=== PATIENT | male | born 1950 | race Caucasian/White ===

== ENCOUNTER 2022-02-07 07:31 | Day surgery (SDC) | payer MEDICARE, OTHER ==
--- NOTE | 2022-02-01 09:51 | NUR ---
01-31-22 CALLED PATIENT TO REMIND OF PRE-ADMIT APPOINTMENT, NO ANSWER LEFT MESSAGE. 02-01-22 PT SIS NOT SHOW UP FOR PRE-ADMIT APPOINTMENT AT 09:00 TODAY. CALLED AGAIN AND LEFT MESSAGE. CLED BACK AND RESCHEDULE FOR PRE-ADMIT ON 02-02-22 AT 14:00.
[~2022-02-07] VITALS: Ht 182.9 cm; Wt 75.0 kg
[~2022-02-07 07:31] MED LIST: AMLODIPINE BESY10 MG PO; CRESTOR10 MG PO; IBUPROFEN400 MG PO; TRIAMTERENE-HC1 EAC1 PO; VIAGRA100 MG PO
--- NOTE | 2022-02-07 10:02 | NUR ---
02/07/22 1002 Sheets,Lauryn 0963 PT ARRIVED TO PACU ON 6L VIA MASK, PT ASLEEP AND RESP EVEN AND UNLABORED. VSS.
--- NOTE | 2022-02-07 16:27 | OR ---
[facility] [address], [place] [address] Signed DATE OF OPERATION: 02/07/2022 SURGEON: Stacy Ramirez MD PREOPERATIVE DIAGNOSIS: History of hyperplastic polyp in 2006, negative colonoscopy in 2013; surveillance. POSTOPERATIVE DIAGNOSIS: Polyps x3 (right transverse, left colon at 60 cm and sigmoid). PROCEDURE: Total colonoscopy to cecum with cold snare polypectomy x2. Cold morcellation polypectomy x1. ANESTHESIA: Intravenous sedation of propofol; Lazarus Pal CRNA. INDICATIONS: This 71-year-old white man is a patient of Dr. Gray at [facility]. He underwent colonoscopy by ri in 2006 showing a hyperplastic polyp of the left colon and repeat colonoscopy in 2012, which was negative. He is symptom free currently. He is here for surveillance colonoscopy. He has no family history of colon cancer. The patient does drink four alcoholic beverages on a daily basis and on that basis propofol infusional sedation is preferred. He understands the risks of colonoscopy including but not limited to bleeding, infection, perforation, and so on. FINDINGS: The prep was adequate. Complete colonoscopy was undertaken to the cecum. He had three polyps all excised completely. PROCEDURE IN DETAIL: The patient was brought to the surgical endoscopy suite, placed in lateral decubitus position. He was given intravenous sedation with propofol infusional technique with full cardiopulmonary monitoring. Digital rectal examination was normal. He did have erythematous changes of the soft tissue of the buttocks, but no sign of actual decubitus or actual cellulitis or infection. An Olympus video colonoscope was passed in the rectum and manipulated throughout the colon noting a small sessile polyp of the right transverse colon initially. This was excised with cold snare technique. The scope was then advanced to the cecum. The ileocecal valve and appendiceal orifice were normal. Scope was withdrawn from that point and examination throughout showed no sign of Electronically Signed By: STACY RAMIREZ MD 02/07/22 1627 PATIENT NAME: SHAYLA HURLEY OPERATIVE REPORT DATE OF : 54 REPORT #: [id number] PHYSICIAN: STACY RAMIREZ MD PCP: ROB GRAY MD REPORT IS CONFIDENTIAL AND NOT TO BE RELEASED WITHOUT AUTHORIZATION [facility] [address], [place] [address] Signed abnormality until the left colon at about 60 cm where another sessile polyp was noted. This too was excised with cold snare polypectomy technique and passed for pathology. Further withdrawal showed a smaller polyp in the rectosigmoid. This was excised with cold morcellation technique. Further withdrawal to the rectum allowed for retroflexed view, which was normal. He did have some internal hemorrhoids. The scope was removed. The patient was taken to recovery room in good condition. CONCLUDING DIAGNOSIS: Polyps x3. PLAN: Recommend repeat colonoscopy in 5 years, sooner if clinically indicated. He will return to the ongoing care of [facility] as Dr. Gray has recently retired. MD KELECHI Siddiqui/ROBERT /[id number] cc: [facility] Copies: ~ Electronically Signed By: STACY RAMIREZ MD 02/07/22 1627 PATIENT NAME: SHAYLA HURLEY [place] OPERATIVE REPORT DATE OF : 54 REPORT #: [id number] PHYSICIAN: STACY RAMIREZ MD PCP: ROB GRAY MD REPORT IS CONFIDENTIAL AND NOT TO BE RELEASED WITHOUT AUTHORIZATION
--- NOTE | 2022-02-09 12:32 | PATH ---
[facility] [address] [place] [address] Signed SPECIMEN(S): A TRANSVERSE ASCENDING/RIGHT POLYP SPECIMEN(S): B POLYP AT 60 CM SPECIMEN(S): C SIGMOID POLYP SPECIMEN SOURCE: A. TRANSVERSE ASCENDING/RIGHT POLYP B. POLYP AT 60 CM C. SIGMOID POLYP CLINICAL HISTORY: Surveillance FINAL PATHOLOGIC DIAGNOSIS: A. Transverse ascending / right polyp: - Tubular adenoma (one fragment). B. Polyp at 60 cm: - Tubular adenoma (two fragments). C. Sigmoid polyp: - Hyperplastic polyp (two fragments). JVR:[facility]:C2NR MICROSCOPIC EXAMINATION: Histologic sections of all submitted blocks are examined by light microscopy. These findings, together with the gross examination, support the pathologic diagnosis. GROSS DESCRIPTION: A. The specimen, labeled and designated "Nelsonlke, transverse ascending/right polyp," is received in formalin and consists of one rodarte soft tissue fragment, 0.4 cm. Entirely submitted in (A1). B. The specimen, labeled and designated "Nelsonlke, polyp at 60 cm," is received in formalin and consists of two rodarte soft tissue fragments, ranging from 0.2 to 0.3 cm. Entirely submitted in (B1). C. The specimen, labeled and designated "Johlke, sigmoid polyp," is received in formalin and consists of three rodarte soft tissue fragments, ranging from 0.2 to 0.4 cm. Entirely submitted in (D1). HH (under the direct supervision of a pathologist) The Gross Description was prepared using a voice recognition system. The report was reviewed for accuracy; however, sound-alike word errors, addition and/or deletions may occur. If there is any question about this report, please contact Client Services. PATIENT NAME: SHAYLA HURLEY PATHOLOGY DATE OF : 54 REPORT #: [id number] PHYSICIAN: ASHLEE PATHOLOGY PCP: ROB GRAY MD REPORT IS CONFIDENTIAL AND NOT TO BE RELEASED WITHOUT AUTHORIZATION [facility] [address] [facility] [place] [address] Signed PERFORMING LABORATORY: The technical component was performed by [facility], [address] [place] [address] (CLIA# [id number]). Professional interpretation was performed by [facility] - [address] [address] (CLIA#: [id number]). Diagnostician: Bebo Hsu MD Pathologist Electronically Signed 02/09/2022 Copies: ~ PATIENT NAME: SHAYLA HURLEY PATHOLOGY DATE OF : 54 REPORT #: [id number] PHYSICIAN: ASHLEE CAMARILLO PCP: ROB GRAY MD REPORT IS CONFIDENTIAL AND NOT TO BE RELEASED WITHOUT AUTHORIZATION
== END 2022-02-07 10:45 | disposition home or self-care (01) ==
LOC: DS 07:31 → OPS 07:31 → DS 10:45 → OPS 10:45
PROVIDERS: ATTEND Surgery
PROC: 0DBL8ZZ Excision of Transverse Colon, Via Natural or Artificial Opening Endoscopic (ICD-10-PCS; 2022-02-07)
PROC: 0DBN8ZZ Excision of Sigmoid Colon, Via Natural or Artificial Opening Endoscopic (ICD-10-PCS; 2022-02-07)
PROC: 0DBM8ZZ Excision of Descending Colon, Via Natural or Artificial Opening Endoscopic (ICD-10-PCS; principal; 2022-02-07 08:30)
DX: Z12.11 Encounter for screening for malignant neoplasm of colon (principal); Z86.010 Personal history of colon polyps; F10.20 Alcohol dependence, uncomplicated; I10 Essential (primary) hypertension; H54.40 Blindness, one eye, unspecified eye; D12.3 Benign neoplasm of transverse colon; K63.5 Polyp of colon
CPT/HCPCS: J2001; J2704; J7121

== ENCOUNTER 2023-05-31 05:55 | Day surgery (SDC) | payer MEDICARE, OTHER ==
[2023-05-23 09:40] VITALS: BP 139/75
[~2023-05-31] VITALS: Ht 182.9 cm; Wt 74.5 kg
[~2023-05-31 05:55] MED LIST changes: +CRESTOR40 MG PO; +LACTATED RINGER'S 1,000 ML IV SCH; +LEVOTHYROXINE112 MC1 PO; +LOSARTAN-HCTZ1 EAC2 PO
[2023-05-31 06:10] VITALS: BP 164/75
[2023-05-31] MEDS ORDERED: ondansetron HCL 4 MG/2 ML VIAL ONE (06:58)
[2023-05-31] MEDS ORDERED: DEXAMETHASONE SOD PHOS 4 MG/ML VIAL ONE ×2 (06:58→07:04)
[2023-05-31] MEDS ORDERED: LIDOCAINE HCL 1% 30 ML SDV ONE (06:58)
[2023-05-31] MEDS ORDERED: dexmedeTOMIDine HCl 200 MCG/2 ML VIAL ONE (06:58)
[2023-05-31] MEDS ORDERED: propofoL 200 MG/20 ML VIAL ONE ×2 (06:58→07:05)
[2023-05-31] MEDS ORDERED: KETAMINE in NS 50 MG/5 ML SYR ONE (06:58)
[2023-05-31] MEDS ORDERED: KETOROLAC TROMETHAMINE 30 MG/ML VIAL ONE (06:58)
[2023-05-31] MEDS ORDERED: LIDOCAINE HCL 1% 5 ML SDV INJ ONE (07:00)
[2023-05-31] MEDS ORDERED: HEParin SOD (PORCINE) 5,000 UNIT/0.5 ML SYR SUB-Q SCH (07:00)
[2023-05-31] MEDS ORDERED: IBLOOD GLUCOSE TEST STRIP 1 EA TEST VI PRN ×2 (07:00→08:45)
[2023-05-31] MEDS ORDERED: CEFAZOLIN SODIUM 2 GM/20 ML SYR IV SCH (07:00)
[2023-05-31] MEDS ORDERED: SODIUM CHLORIDE 0.9% 20 ML IV ONE (07:04)
[2023-05-31] MEDS ORDERED: Ropivacaine HCl 0.5% 30 ML VIAL ONE (07:04)
--- NOTE | 2023-05-31 07:30 | NUR ---
UNABLE TO VISIT DURING SPIRITUAL CARE ROUNDS. PT JUST LEAVING FOR PROCEDURE. PROVIDED PRAYER WITHOUT INTERRUPTING.
[2023-05-31] MEDS ORDERED: ACETAMINOPHEN 1,000 MG/100 ML VIAL ONE (07:42)
[2023-05-31] MEDS ORDERED: LACTATED RINGER'S 1,000 ML IV ONE (08:20)
[2023-05-31] MEDS ORDERED: ePHEDrine sulfate 50 MG/ML AMP ONE (08:31)
[2023-05-31] MEDS ORDERED: NALOXONE HCL 0.4 MG SYR IV PRN ×2 (08:45→09:00)
[2023-05-31] MEDS ORDERED: fentaNYL citrate 50 MCG/ML SDV IV PRN (08:45)
[2023-05-31] MEDS ORDERED: ondansetron HCL 4 MG/2 ML VIAL IV PRN (08:45)
[2023-05-31] MEDS ORDERED: PERCOCET 7.5-31 EACH PO (08:55)
[2023-05-31] MEDS ORDERED: TYLENOL EXTRA500 MG PO (08:55)
--- NOTE | 2023-05-31 08:58 | NUR ---
05/31/23 0858 Sheets,Lauryn 0897 PT ARRIVED TO PACU ON 6L VIA MASK, RESP EVEN AND UNLABORED WITH ORAL AIRWAY IN PLACE. VSS.
[2023-05-31] MEDS ORDERED: OXYCODONE/APAP 7.5/325 TAB PO PRN (09:00)
[2023-05-31] MEDS ORDERED: IBUPROFEN 600 MG TAB PO PRN (09:00)
[2023-05-31] MEDS ORDERED: ACETAMINOPHEN 500 MG TAB PO PRN (09:00)
[2023-05-31] MEDS ORDERED: LACTATED RINGER'S 1,000 ML IV SCH (09:00)
[2023-05-31 09:30] VITALS: BP 130/70
[2023-05-31 10:45] VITALS: BP 138/73
--- NOTE | 2023-05-31 11:44 | NUR ---
0930: PATIENT BACK IN DAY SURGERY ROOM FROM PACU. DENIES PAIN. RIGHT GROIN DRESSING WITH SCANT AMOUNT OF RED DRAINAGE. VS CHECKED. O2 SAT HIGH 90s ON 2L. OXYGEN TURNED OFF. PATIENT ON ROOM AIR NOW. SCDs ON. GIVEN ICE WATER. CALL LIGHT WITHIN REACH. 0950: CHECKED PATIENT. NO NEEDS AT THIS TIME. GIVEN APPLESAUCE TO EAT. CALL LIGHT WITHIN REACH. 1020: PATIENT ASSISTED OOB AND TO BATHROOM. GAIT STEADY. VOID WITHOUT DIFFICULTY. GAIT STEADY BACK TO ROOM. PATIENT GETTING DRESSED. 1045: VS CHECKED. DISCHARGE INSTRUCTIONS GIVEN TO PATIENT. 1100: IV DC'D WNL. TIP INTACT. DRESSING APPLIED. PATIENT WALKED TO BATHROOM INDEPENDENTLY. 1107: PATIENT DISCHARGED TO HOME VIA WHEELCHAIR WITH MADELINE.
[2023-05-31] MEDS ORDERED: SILDENAFIL20 MG PO (16:43)
[2023-05-31] MEDS ORDERED: TAMSULOSIN HCL0.4 MG PO (16:44)
[2023-05-31] MEDS ORDERED: SYNTHROID112 MCG PO (16:46)
--- NOTE | 2023-06-02 08:28 | OR ---
[facility] [address], [place] [address] Signed DATE OF OPERATION: 05/31/2023 SURGEON: Stacy Ramirez MD PREOPERATIVE DIAGNOSIS: Right inguinal hernia. POSTOPERATIVE DIAGNOSIS: Right indirect inguinal hernia. PROCEDURE: Repair of right indirect inguinal hernia with implantation of Prolene mesh in underlay technique (included ligation and excision of indirect sac). ANESTHESIA: General LMA, Saba Vanegas CRNA and local 10 mL of 0.25% Marcaine with epinephrine and preoperative nerve block. INDICATION: This 72-year-old white man is a patient of DAVID Au and DAVID Berumen. He has had increasing pain in the right groin and a bulge noted on examination consistent with inguinal hernia. He has used a truss which he obtained online from [employer], which does help his symptoms somewhat. He has no associated bladder outlet obstructive symptoms. No chronic cough and no constipation. He underwent colonoscopy in 2022 showing two tubular adenomas and hyperplastic polyp. He did undergo a left inguinal hernia repair at age 18 in the distant past. He has no sign of left-sided hernia. He is admitted at this time to undergo right inguinal hernia repair. He understands the risk of bleeding, infection, and recurrence of hernia and wished to proceed. FINDINGS: The cord structures were bulky related to an indirect hernia sac. The hernia sac was freed from the cord with all due care, opened and found to have no sign of hollow viscus within it or sliding component. It was excised and ligated. The floor was attenuated. Implantation of Prolene mesh in an underlay technique was accomplished as well. PROCEDURE IN DETAIL: The patient was brought to the operating room, given a general LMA anesthetic after undergoing a regional nerve block in the right side. The lower abdomen was clipped and prepared with a chlorhexidine solution and draped sterilely. Preoperative antibiotic Ancef was given. Sequential compression device stockings were used and heparin Electronically Signed By: STACY RAMIREZ MD 06/02/23 0828 PATIENT NAME: SHAYLA HURLEY OPERATIVE REPORT DATE OF : 54 REPORT #: [id number] PHYSICIAN: STACY RAMIREZ MD PCP: JENNIFFER DILLARD REPORT IS CONFIDENTIAL AND NOT TO BE RELEASED WITHOUT AUTHORIZATION [facility] [address], [place] [address] Signed subcutaneously administered. A small incision was made cephalad to the pubic tubercle and dissection was carried through the subcutaneous tissue with electrocautery. The external oblique was identified and incised along its fibers revealing the underlying cord. External oblique was secured medially and laterally. The cord was mobilized from the floor with all due care using blunt and electrocautery dissection. It was encircled with a Pomeroy drain. The cord structures were bulky indicative of the sac within the cord itself. The floor was somewhat attenuated. The cremasteric muscle fibers of the cord were incised circumferentially revealing indirect hernia sac which was freed from the cord structures and bluntly from them taking care to avoid any injury to cord structures. The hernia sac once fully exposed was opened and internal inspection showed no sign of sliding component or incarcerated viscus. The neck of the hernia sac was secured with 2-0 silk suture ligated and divided. The redundant hernia sac was passed for permanent pathology. An Allis clamp was applied to the tendon of the transversus abdominis and the attenuated fibers of the fascia of transversalis were incised with electrocautery and blunt dissection the properitoneal fat. A segment of Prolene mesh was cut to an elliptical configuration and secured in an underlay technique with interrupted 2-0 Prolene sutures. A defect was cut in the graft to accommodate the cord. The cord and the tails of the graft were secured laterally with all due care. 10 mL of 0.25% Marcaine with epinephrine was injected locally. The cord was placed in the canal and the external oblique was reapproximated with running 2-0 Vicryl suture. Leticia layer was reapproximated with interrupted 2-0 Vicryl and skin closed with running subcuticular 3-0 Vicryl. Steri-Strips were applied as was an Acticoat dressing. He tolerated the procedure well. Blood loss was minimal. Complications none. MD KELECHI Siddiqui/CASEYL /[id number] cc: ADELINA Hinkle FNP Electronically Signed By: STACY RAMIREZ MD 06/02/23 0828 PATIENT NAME: SHAYLA HURLEY OPERATIVE REPORT DATE OF : 54 REPORT #: [id number] PHYSICIAN: STACY RAMIREZ MD PCP: JENNIFFER DILLARD REPORT IS CONFIDENTIAL AND NOT TO BE RELEASED WITHOUT AUTHORIZATION [address] [address] Signed Copies: KARO BRIDGES PA-C ~ Electronically Signed By: STACY RAMIREZ MD 06/02/23 0828 PATIENT NAME: SHAYLA HURLEY [place] OPERATIVE REPORT DATE OF : 54 REPORT #: [id number] PHYSICIAN: STACY RAMIREZ MD PCP: JENNIFFER DILLARD REPORT IS CONFIDENTIAL AND NOT TO BE RELEASED WITHOUT AUTHORIZATION
--- NOTE | 2023-06-06 15:57 | PATH ---
[facility] [address] [facility] [place], [place] [address] Signed SPECIMEN(S): A RIGHT INGUINAL HERNIA SAC SPECIMEN SOURCE: A. RIGHT INGUINAL HERNIA SAC CLINICAL HISTORY: Right inguinal hernia. FINAL PATHOLOGIC DIAGNOSIS: Right inguinal hernia sac: - Benign fibromembranous and adipose tissue consistent with clinical hernia sac. JVR:clv MICROSCOPIC EXAMINATION: Histologic sections of all submitted blocks are examined by light microscopy. These findings, together with the gross examination, support the pathologic diagnosis. GROSS DESCRIPTION: The specimen, labeled and designated "Dk, right inguinal hernia sac," is received in formalin and consists of irregular shaped pink-rodarte, focally congested fibromembranous tissue fragment that measure 5.5 x 1.2 x 0.4 cm. Sectioning through the specimen is grossly unremarkable. [employer] sections are submitted in (A1). JS (under the direct supervision of a pathologist) The Gross Description was prepared using a voice recognition system. The report was reviewed for accuracy; however, sound-alike word errors, addition and/or deletions may occur. If there is any question about this report, please contact Client Services. ADDITIONAL NOTES: Immunohistochemical and/or in situ hybridization studies if performed in this case included appropriate positive controls that reacted as expected. This test was developed and its performance characteristics determined by [facility]. It has not been cleared or approved by the U.S. Food and Drug Administration. The FDA has determined that such clearance or approval is not necessary. This test is used for clinical purposes. It should not be regarded as investigational or for research. [facility] is certified under the Clinical Laboratory Improvement PATIENT NAME: SHAYLA HURLEY PATHOLOGY DATE OF : 54 REPORT #: [id number] PHYSICIAN: ASHLEE CAMARILLO PCP: JENNIFFER DILLARD REPORT IS CONFIDENTIAL AND NOT TO BE RELEASED WITHOUT AUTHORIZATION [facility] [address] [facility] [place], [place] [address] Signed Amendments of 1988 (CLIA) as qualified to perform high complexity clinical laboratory testing. PERFORMING LABORATORY: Technical component was performed by [facility], [address] [place] [id number] (CLIA# [id number]). Professional interpretation was performed by [facility], [address] [place] [id number] (CLIA#: [id number]). Diagnostician: Bebo Hsu MD Pathologist Electronically Signed 06/06/2023 Copies: ~ PATIENT NAME: SHAYLA HURLEY PATHOLOGY DATE OF : 54 REPORT #: [id number] PHYSICIAN: ASHLEE CAMARILLO PCP: JENNIFFER DILLARD REPORT IS CONFIDENTIAL AND NOT TO BE RELEASED WITHOUT AUTHORIZATION
== END 2023-05-31 11:07 | disposition home or self-care (01) ==
LOC: DS 05:55
PROVIDERS: ATTEND Surgery
PROC: 0YU54JZ Supplement Right Inguinal Region with Synthetic Substitute, Percutaneous Endoscopic Approach (ICD-10-PCS; principal; 2023-05-31 07:30)
DX: K40.90 Unilateral inguinal hernia, without obstruction or gangrene, not specified as recurrent (principal); I10 Essential (primary) hypertension; H54.413A Blindness right eye category 3, normal vision left eye; Z86.010 Personal history of colon polyps; Z79.899 Other long term (current) drug therapy
CPT/HCPCS: 00830; 64425; 76942; C1781; J0131; J0690; J1100; J1644; J1885; J2405; J2704; J2795; J3490; J7121